=== PATIENT | female | born 1965 | race American Indian/Alaskan Native ===

== ENCOUNTER 2020-06-21 16:59 | Emergency (ER) | payer OTHER ==
[2020-06-21] MEDS ORDERED: ASPIRIN 325 MG TAB PO ONE (17:30)
--- NOTE | 2020-06-21 17:42 | Event Note ---
ED Screening Note Date of service: 06/21/20 Time: 17:41 ED Screening Note: This initial assessment/diagnostic orders/clinical plan/treatment(s) is/are subject to change based on patients health status, clinical progression and re- assessment by fellow clinical providers in the ED. Further treatment and workup at subsequent clinical providers discretion. Patient/guardian urged not to elope from the ED as their condition may be serious if not clinically assessed and managed. Initial orders include: cardiac workup
--- NOTE | 2020-06-21 18:08 | XRay Report ---
XR chest routine 2V INDICATION / CLINICAL INFORMATION: Chest Pain. COMPARISON: None available. FINDINGS: SUPPORT DEVICES: None. HEART / MEDIASTINUM: No significant abnormality. LUNGS / PLEURA: No significant pulmonary or pleural abnormality. No pneumothorax. ADDITIONAL FINDINGS: No significant additional findings. IMPRESSION: 1. No acute findings. Signer Name: Kaushal Mclean MD Signed: 06/21/2020 6:04 PM Workstation Name: [id number]
[2020-06-21 18:35] LABS: Basophils % (Auto) 1.2 % (0.0-1.8); Eosinophils # (Auto) 0.1 K/mm3 (0.0-0.4); Eosinophils % (Auto) 1.5 % (0.0-4.3); Hematocrit 42.9 % (30.3-42.9); Hemoglobin 14.3 gm/dl (10.1-14.3); Lymphocytes # (Auto) 1.8 K/mm3 (1.2-5.4); Lymphocytes % (Auto) 44.2 % (13.4-35.0); Mean Corpuscular HGB Conc 33 % (30-34); Mean Corpuscular Volume 85 fl (79-97); Monocytes # (Auto) 0.2 K/mm3 (0.0-0.8); Monocytes % (Auto) 5.6 % (0.0-7.3); Platelet Count 215 K/mm3 (140-440); Red Blood Count 5.06 M/mm3 (3.65-5.03)
[2020-06-21 18:43] LABS: INR 1.07 (0.87-1.13)
[2020-06-21 18:44] LABS: Partial Thromboplastin Time 32.1 Sec. (24.2-36.6)
[2020-06-21 18:49] VITALS: BP 142/81
[2020-06-21 18:54] LABS: Alanine Aminotransferase 24 units/L (7-56); Albumin 4.4 g/dL (3.9-5); Blood Urea Nitrogen 16 mg/dL (7-17); Calcium 9.7 mg/dL (8.4-10.2); Hemolysis Index 9
[2020-06-21 19:02] LABS: BUN/Creatinine Ratio 23
[2020-06-21] MEDS ORDERED: ALUM-MAG HYDROXIDE-SIMETHICONE 200-200-20MG/5ML ORAL LIQD 30 ML PO ONE (19:24)
[2020-06-21] MEDS ORDERED: HYOSCYAMINE SUBL 0.125 MG TAB SL ONE (19:24)
[2020-06-21] MEDS ORDERED: ONDANSETRON 4 MG ODT TAB PO ONE (19:24)
[2020-06-21] MEDS ORDERED: FAMOTIDINE 20 MG TAB PO ONE (19:24)
--- NOTE | 2020-06-21 19:45 | Emergency Department Report ---
<SOLEDAD HERNÁNDEZ - Last Filed: 06/21/20 21:51> ED General Adult HPI - General Chief complaint: Chest Pain Stated complaint: CHEST PAIN/ALIVIA/DIZZY Time Seen by Provider: 06/21/20 18:50 Source: patient Mode of arrival: Ambulatory Limitations: No Limitations - History of Present Illness Initial comments: Patient is a 54-year-old female presents emergency room with complaints of midline chest pain that began a week ago but has been intermittent for several months. She states that she has associated burning sensation. She has a history of GERD and states that she went to her primary care doctor few days ago and was advised to increase her dose of her acid reflux medication. She states that she has seen GI in the past and had a EGD a couple years ago which she reports just showed GERD. She states that before her symptoms began she ate garlic and she believes that is what caused her acid reflux to flare. She states that she is also been having lightheaded and dizziness since October. She states that her doctor advised her was most likely vertigo but she has not been taking any medication for vertigo. She states that she was also diagnosed with anxiety last month but did not begin taking the medication until a week ago. She denies any vomiting, diarrhea, fever, cough, shortness of breath, leg swelling, headache, vision changes, numbness, weakness. She denies any recent travel, recent surgery, hormone use, immobilization. She has a past medical history of GERD and hypertension. No allergies to medications. She denies any family cardiac history or history of DVT/PE. - Related Data Home Medications Medication Instructions Recorded Confirmed Last Taken Hydrochlorothiazide 12.5 mg PO DAILY 06/15/18 06/15/18 06/15/18 Previous Rx's Medication Instructions Recorded Last Taken Type Azithromycin [Zithromax Z-SG] 1 dose PO DAILY 5 Days tab 06/15/18 Unknown Rx Benzocaine/Mentho [Cepacol X 8 each MM Q2HR PRN #20 lozenge 06/15/18 Unknown Rx Strength] Famotidine [Pepcid] 20 mg PO BID #30 tablet 06/15/18 Unknown Rx guaiFENesin [Mucinex] 1,200 mg PO Q12HR PRN #20 tab 06/15/18 Unknown Rx Meclizine [Antivert] 25 mg PO Q8HR PRN #20 tablet 06/21/20 Unknown Rx Sucralfate [Carafate] 1 gm PO ACHS 7 Days #21 tablet 06/21/20 Unknown Rx Allergies Allergy/AdvReac Type Severity Reaction Status Date / Time No Known Allergies Allergy Unverified 06/15/18 10:53 ED Review of Systems Comment: All other systems reviewed and negative ED Past Medical Hx - Past Medical History Previous Medical History?: Yes Hx Hypertension: Yes - Surgical History Past Surgical History?: Yes Additional Surgical History: Hysterectomy, Hemorrhoid surgery - Social History Smoking Status: Never Smoker Substance Use Type: Prescribed - Medications Home Medications: Home Medications Medication Instructions Recorded Confirmed Last Taken Type Azithromycin [Zithromax Z-SG] 1 dose PO DAILY 5 Days tab 06/15/18 Unknown Rx Benzocaine/Mentho [Cepacol X 8 each MM Q2HR PRN #20 lozenge 06/15/18 Unknown Rx Strength] Famotidine [Pepcid] 20 mg PO BID #30 tablet 06/15/18 Unknown Rx Hydrochlorothiazide 12.5 mg PO DAILY 06/15/18 06/15/18 06/15/18 History guaiFENesin [Mucinex] 1,200 mg PO Q12HR PRN #20 tab 06/15/18 Unknown Rx Meclizine [Antivert] 25 mg PO Q8HR PRN #20 tablet 06/21/20 Unknown Rx Sucralfate [Carafate] 1 gm PO ACHS 7 Days #21 tablet 06/21/20 Unknown Rx ED Physical Exam - General Limitations: No Limitations General appearance: alert, in no apparent distress - Head Head exam: Present: atraumatic, normocephalic - Eye Eye exam: Present: normal appearance - ENT ENT exam: Present: mucous membranes moist - Respiratory Respiratory exam: Present: normal lung sounds bilaterally. Absent: respiratory distress, wheezes, rales, rhonchi, stridor, chest wall tenderness, accessory muscle use, decreased breath sounds, prolonged expiratory - Cardiovascular Cardiovascular Exam: Present: regular rate, normal rhythm, normal heart sounds. Absent: systolic murmur, diastolic murmur, rubs, gallop - GI/Abdominal GI/Abdominal exam: Present: soft, normal bowel sounds. Absent: distended, tenderness, guarding, rebound, rigid - Neurological Exam Neurological exam: Present: alert, oriented X3, CN II-XII intact, normal gait. Absent: motor sensory deficit - Psychiatric Psychiatric exam: Present: normal affect, normal mood - Skin Skin exam: Present: warm, dry, intact ED Medical Decision Making - Lab Data Result diagrams: 06/21/20 18:14 06/21/20 18:14 Lab Results 06/21/20 06/21/20 06/21/20 Range/Units 18:14 18:14 18:14 WBC 4.1 L (4.5-11.0) K/mm3 RBC 5.06 H (3.65-5.03) M/mm3 Hgb 14.3 (10.1-14.3) gm/dl Hct 42.9 (30.3-42.9) % MCV 85 (79-97) fl MCH 28 (28-32) pg MCHC 33 (30-34) % RDW 13.0 L (13.2-15.2) % Plt Count 215 (140-440) K/mm3 Lymph % (Auto) 44.2 H (13.4-35.0) % [place] % (Auto) 5.6 (0.0-7.3) % Eos % (Auto) 1.5 (0.0-4.3) % Baso % (Auto) 1.2 (0.0-1.8) % Lymph # (Auto) 1.8 (1.2-5.4) K/mm3 [place] # (Auto) 0.2 (0.0-0.8) K/mm3 Eos # (Auto) 0.1 (0.0-0.4) K/mm3 Baso # (Auto) 0.0 (0.0-0.1) K/mm3 Seg Neutrophils % 47.5 (40.0-70.0) % Seg Neutrophils # 1.9 (1.8-7.7) K/mm3 PT 13.8 (12.2-14.9) Sec. INR 1.07 (0.87-1.13) APTT 32.1 (24.2-36.6) Sec. Sodium 136 L (137-145) mmol/L Potassium 3.4 L (3.6-5.0) mmol/L Chloride 97.8 L (98-107) mmol/L Carbon Dioxide 28 (22-30) mmol/L Anion Gap 14 mmol/L BUN 16 (7-17) mg/dL Creatinine 0.7 (0.6-1.2) mg/dL Estimated GFR > 60 ml/min BUN/Creatinine Ratio 23 % Glucose 158 H (65-100) mg/dL Calcium 9.7 (8.4-10.2) mg/dL Total Bilirubin 0.30 (0.1-1.2) mg/dL AST 26 (5-40) units/L ALT 24 (7-56) units/L Alkaline Phosphatase 98 (35-129) units/L Troponin T < 0.010 (0.00-0.029) ng/mL Total Protein 7.7 (6.3-8.2) g/dL Albumin 4.4 (3.9-5) g/dL Albumin/Globulin Ratio 1.3 % 06/21/20 Range/Units 20:30 WBC (4.5-11.0) K/mm3 RBC (3.65-5.03) M/mm3 Hgb (10.1-14.3) gm/dl Hct (30.3-42.9) % MCV (79-97) fl MCH (28-32) pg MCHC (30-34) % RDW (13.2-15.2) % Plt Count (140-440) K/mm3 Lymph % (Auto) (13.4-35.0) % [place] % (Auto) (0.0-7.3) % Eos % (Auto) (0.0-4.3) % Baso % (Auto) (0.0-1.8) % Lymph # (Auto) (1.2-5.4) K/mm3 [place] # (Auto) (0.0-0.8) K/mm3 Eos # (Auto) (0.0-0.4) K/mm3 Baso # (Auto) (0.0-0.1) K/mm3 Seg Neutrophils % (40.0-70.0) % Seg Neutrophils # (1.8-7.7) K/mm3 PT (12.2-14.9) Sec. INR (0.87-1.13) APTT (24.2-36.6) Sec. Sodium (137-145) mmol/L Potassium (3.6-5.0) mmol/L Chloride (98-107) mmol/L Carbon Dioxide (22-30) mmol/L Anion Gap mmol/L BUN (7-17) mg/dL Creatinine (0.6-1.2) mg/dL Estimated GFR ml/min BUN/Creatinine Ratio % Glucose (65-100) mg/dL Calcium (8.4-10.2) mg/dL Total Bilirubin (0.1-1.2) mg/dL AST (5-40) units/L ALT (7-56) units/L Alkaline Phosphatase (35-129) units/L Troponin T < 0.010 (0.00-0.029) ng/mL Total Protein (6.3-8.2) g/dL Albumin (3.9-5) g/dL Albumin/Globulin Ratio % - EKG Data EKG shows normal: sinus rhythm, axis, intervals, QRS complexes, ST-T waves Rate: normal - Radiology Data Radiology results: report reviewed Ordering Physician: FELICIA WHATLEY Date of Service: 06/21/20 Procedure(s): XR chest routine 2V Accession Number(s): [id number] cc: FELICIA WHATLEY Fluoro Time In Minutes: XR chest routine 2V INDICATION / CLINICAL INFORMATION: Chest Pain. COMPARISON: None available. FINDINGS: SUPPORT DEVICES: None. HEART / MEDIASTINUM: No significant abnormality. LUNGS / PLEURA: No significant pulmonary or pleural abnormality. No pneumothorax. ADDITIONAL FINDINGS: No significant additional findings. IMPRESSION: 1. No acute findings. Signer Name: Luisa Mclean MD Signed: 06/21/2020 6:04 PM Workstation Name: [id number] Transcribed By: JS Dictated By: LUISA CORRALES MD Electronically Authenticated By: LUISA CORRALES MD Signed Date/Time: 06/21/201803 DD/ 02 TD/TT: - Medical Decision Making Patient is a 54-year-old female presents emergency room with complaints of midline chest pain that began a week ago but has been intermittent for several months. She states that she has associated burning sensation. She has a history of GERD and states that she went to her primary care doctor few days ago and was advised to increase her dose of her acid reflux medication. She states that she has seen GI in the past and had a EGD a couple years ago which she reports just showed GERD. She states that before her symptoms began she ate ga rlic and she believes that is what caused her acid reflux to flare. She states that she is also been having lightheaded and dizziness since October. She states that her doctor advised her was most likely vertigo but she has not been taking any medication for vertigo. She states that she was also diagnosed with anxiety last month but did not begin taking the medication until a week ago. She denie s any vomiting, diarrhea, fever, cough, shortness of breath, leg swelling, headache, vision changes, numbness, weakness. She denies any recent travel, recent surgery, hormone use, immobilization. She has a past medical history of GERD and hypertension. No allergies to medications. She denies any family cardiac history or history of DVT/PE. Vitals are stable. Labs are stable. EKG is within normal limits. Chest x-ray with no acute process. Troponin is negative x2. Low risk based on Wells criteria for PE, PE very unlikely. Heart score is 2, low risk for cardiac event. Her symptoms are not consistent with ACS, appears most likely related to her GERD. Patient given Levsin, Pepcid, Zo mine, Maalox while in the emergency department and her symptoms improved and she is feeling much better and ready to go home. Patient given prescription for Carafate and meclizine. Patient will be given GI and cardiology outpatient referrals. Advised patient to please take medication as prescribed. Increase your water intake. please follow the diet for acid reflux. Follow-up with your GI doctor. 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 Follow-up with your primary care doctor. Return to emergency room for any new or worsening symptoms. - Differential Diagnosis GERD, PUD, gastritis, ACS, PNA, PTX, pericarditis, anxiety, anemia ED Disposition Clinical Impression: Atypical chest pain, Lightheadedness GERD (gastroesophageal reflux disease) Qualifiers: Esophagitis presence: without esophagitis Qualified Code(s): K21.9 - Gastro- esophageal reflux disease without esophagitis Disposition: DC-01 TO HOME OR SELFCARE Is pt being admited?: No Does the pt Need Aspirin: No Condition: Stable Instructions: Heartburn, [id number], Food Choices for Gastroesophageal Reflux Disease, Adult, Dizziness, [id number], Chest Pain (ED) Additional Instructions: Please take medication as prescribed. Please continue taking your acid reflux medication. Increase your water intake. Please follow the diet for acid reflux. Follow-up with a GI doctor. 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 Follow-up with your primary care doctor. Return to emergency room for new or worsening symptoms. Prescriptions: Meclizine [Antivert] 25 mg PO Q8HR PRN #20 tablet PRN Reason: dizziness/nausea Sucralfate [Carafate] 1 gm PO ACHS 7 Days #21 tablet Referrals: your, primary care doctor [Other] - 2-3 Days [facility] [Provider Group] - 2-3 Days [facility] [Provider Group] - 2-3 Days Time of Disposition: 21:24 Print Language: HUNGARIAN <OWEN WOODY S - Last Filed: 06/21/20 22:09> ED Review of Systems ROS: Stated complaint: CHEST PAIN/ALIVIA/DIZZY Other details as noted in HPI ED Course Vital Signs 06/21/20 06/21/20 17:19 21:30 Temperature 98.0 F Pulse Rate 63 58 L Respiratory 16 16 Rate Blood Pressure 142/81 O2 Sat by Pulse 100 100 Oximetry ED Medical Decision Making - Lab Data Result diagrams: 06/21/20 18:14 06/21/20 18:14 Critical care attestation.: If time is entered above; I have spent that time in minutes in the direct care of this critically ill patient, excluding procedure time. ED Disposition Is pt being admited?: No Heart Score - HEART Score History: Slightly suspicious EKG: Normal Age: 45-65 Risk factors: 1-2 risk factors Troponin: < normal limit HEART Score: 2 - Critical Actions Critical Actions: 0-3 pts:0.9-1.7%risk of adverse cardiac event.Candidate for discharge
== END 2020-06-21 21:30 | disposition home or self-care (01) ==
LOC: ED 16:59
DX: K21.9 Gastro-esophageal reflux disease without esophagitis (principal); R42 Dizziness and giddiness
CPT/HCPCS: 36415; 71046; 80053; 84484; 85025; 85610; 85730; 93005; Q0162